=== PATIENT | female | born 1960 | race Caucasian/White ===

== ENCOUNTER 2018-02-02 12:45 | Day surgery (SDC) | payer OTHER ==
[2018-02-02] MEDS ORDERED: FENTAnyl 50 MCG/ML VIAL (14:53)
[2018-02-02] MEDS ORDERED: MIDAZOLAM 1 MG/ML 2 ML INJ ×2 (14:54)
== END 2018-02-03 08:32 | disposition home or self-care (01) ==
LOC: GIL 12:45
DX: Z12.11 Encounter for screening for malignant neoplasm of colon (principal); K64.8 Other hemorrhoids
CPT/HCPCS: 45378